=== PATIENT | female | born 1955 | race Two or more races ===

== ENCOUNTER 2018-05-23 15:09 | Emergency (ER) | payer MEDICAID ==
[~2018-05-23] VITALS: Ht 154.9 cm; Wt 54.4 kg
[2018-05-23 15:15] VITALS: BP 134/85
[2018-05-23] MEDS ORDERED: TDAP [DIPH/PERTUSSIS/TET] 0.5 ML VIAL IM ONE ×2 (16:00→16:09)
[2018-05-23] MEDS ORDERED: IBUPROFEN 600 MG TABLET PO ONE ×2 (16:00→16:09)
--- NOTE | 2018-05-23 18:47 | NUR ---
Patient discharged to home in stable condition. Written and verbal after care instructions given. Patient verbalizes understanding of instruction.
== END 2018-05-23 18:48 | disposition home or self-care (01) ==
LOC: ER 15:11
DX: S97.82XA Crushing injury of left foot, initial encounter (principal); S90.412A Abrasion, left great toe, initial encounter; W23.0XXA Caught, crushed, jammed, or pinched between moving objects, initial encounter; Y93.89 Activity, other specified; Y92.410 Unspecified street and highway as the place of occurrence of the external cause; Y99.8 Other external cause status
CPT/HCPCS: 73630-TC; 90715; A4606; A6402; Z7610